=== PATIENT | female | born 1970 | race Caucasian/White ===

== ENCOUNTER 2019-05-09 18:52 | Emergency (ER) | payer BC ==
[~2019-05-09] VITALS: Ht 172.7 cm; Wt 60.8 kg
--- NOTE | 2019-05-09 19:35 | NUR ---
Pt provided urine sample, sent to lab.
--- NOTE | 2019-05-09 19:41 | NUR ---
Patient ambulated with stable gait. Speech is clear, speaks in complete sentences. No neuro deficits. A/Ox4. Patient came for c/o having a possible uti, reports having hematuria since 1300. Respiratory even and unlabored, no cough no sob. No cardiovascular distress noted. Patient in bed accompanied by relative. Patient in bed at lowest position, sr upx2, call light within reach. Fall precautions implemented per protocol.
[2019-05-09 19:55] LABS: *BILIRUBIN,URIN 1+ (NEGATIVE); *BLOOD, URINE 3+ (NEGATIVE); *KETONES,URINE TRACE (NEGATIVE); *UROBILINOGEN,URINE 0.2 E.U./dl (NORMAL); NITRITE, URINE NEGATIVE (NEGATIVE); PH,URINE 5.5 (5.0-8.0); UGLUCOSE NEGATIVE (NEGATIVE)
[2019-05-09 19:56] LABS: *URINE HCG, QUAL NEGATIVE (NEGATIVE)
[2019-05-09 20:00] LABS: *CLARITY,URINE BLOODY (CLEAR); *COLOR,URINE RED (YELLOW)
[2019-05-09] MEDS ORDERED: CEphaleXIN 500 MG CAPSULE PO ONE (20:00)
[2019-05-09 20:01] LABS: LEUKOCYTE ESTERASE ,URINE 2+ (NEGATIVE)
[2019-05-09 20:06] LABS: BACTERIA,URINE MODERATE /HPF (NONE SEEN); MUCUS,URINE MANY /LPF (0-FEW); RBC,URINE TNTC /HPF (0-3); SQUAMOUS EPITHELIAL CELL,UR MODERATE /HPF (NONE SEEN); WBC,URINE 50-80 /HPF (0-3)
[2019-05-09] MEDS ORDERED: CEphaleXIN 500 MG CAPSULE ONE (20:08)
--- NOTE | 2019-05-09 20:24 | NUR ---
Patient discharged to home in stable conditon. Written and verbal after care instructions given. Patient verbalizes understanding of instructions. Patient ambulated with stable gait.
[2019-05-09 20:27] VITALS: BP 139/89
== END 2019-05-09 20:28 | disposition home or self-care (01) ==
LOC: ER 18:52
DX: N39.0 Urinary tract infection, site not specified (principal)
CPT/HCPCS: 84703; 87077; 87086; A4663

== ENCOUNTER 2020-01-01 23:20 | Emergency (ER) | payer BC ==
[~2020-01-01] VITALS: Ht 172.7 cm; Wt 61.2 kg
--- NOTE | 2020-01-02 00:54 | NUR ---
Patient discharged to home in stable conditon. Written and verbal after care instructions given. Patient verbalizes understanding of instructions. Pt accompnied by . Pt walked out of ER with stable gait. No acute distress noted.
[2020-01-02 00:55] VITALS: BP 121/78
== END 2020-01-02 00:56 | disposition home or self-care (01) ==
LOC: ER 23:22
DX: S81.811A Laceration without foreign body, right lower leg, initial encounter (principal); W25.XXXA Contact with sharp glass, initial encounter; Y93.89 Activity, other specified; Y92.89 Other specified places as the place of occurrence of the external cause; Y99.8 Other external cause status
CPT/HCPCS: 12002; 73590; 99283; J3490 ×2; A4663